=== PATIENT | male | born 1950 | race Caucasian/White ===

== ENCOUNTER 2023-10-05 06:00 | Inpatient (IN) | payer OTHER ==
[2023-10-04 15:10] VITALS: BMI 27.8
[2023-10-05] MEDS ORDERED: ceFAZolin SODIUM 1 GM VIAL IVPB ONE ×2 (07:41→09:45)
[2023-10-05] MEDS ORDERED: VANCOMYCIN 1 GM in D5W (PRE-DOCKED) 1,000 MG/250 ML (RESTRICTED TO ID ONLY IVPB ONE ×2 (07:42→09:45)
[2023-10-05] MEDS ORDERED: LIDOCAINE 1%/EPI 1:100000 (20 ML MULTI DOSE VIAL) IJ ONE ×2 (07:42→09:49)
[2023-10-05] MEDS ORDERED: THROMBIN (BOVINE) 5,000 UNIT VIAL TP ONE ×2 (09:02→10:15)
[2023-10-05] MEDS ORDERED: HYDROGEN PEROXIDE 473 ML PO ONE ×2 (09:03→10:36)
[2023-10-05] MEDS ORDERED: GENTAMICIN SO4 80 MG/2 ML VIAL IVPB ONE ×2 (09:03→10:36)
[2023-10-05] MEDS ORDERED: ACETAMINOPHEN 1000 MG/100 ML BAG IVPB ONE ×2 (11:24→11:42)
[2023-10-05] MEDS ORDERED: ONDANSETRON 4 MG/2 ML VIAL IVPUSH PRN ×2 (11:24→11:30)
[2023-10-05] MEDS ORDERED: PROMETHAZINE HCL 25 MG/1 ML VIAL IVPB PRN (11:24)
[2023-10-05] MEDS ORDERED: oxyCODONE HCL 5 MG TABLET PO PRN (11:30)
[2023-10-05] MEDS ORDERED: LACTATED RINGERS SOLUTION 1,000 ML IV SCH (11:30)
[2023-10-05] MEDS ORDERED: morphine SULFATE 4 MG/ML VIAL IVPUSH PRN (11:30)
[2023-10-05] MEDS ORDERED: diphenhydrAMINE HCL 25 MG CAPSULE (FP) PO PRN (11:30)
[2023-10-05] MEDS ORDERED: ACETAMINOPHEN INJECTION 100 ML IVPB ONE (11:35)
[2023-10-05] MEDS: SODIUM CHLORIDE 1,000 ML IV SCH (14:33)
[2023-10-05] MEDS: DOCUSATE SODIUM 100 MG CAPSULE (FP) PO SCH ×2 (14:34→22:05)
[2023-10-05] MEDS: oxyCODONE HCL 5 MG TABLET PO PRN ×2 (14:43→22:05)
[2023-10-05] MEDS: amLODIPine BESYLATE 10 MG TABLET (FP) PO SCH (17:38)
[2023-10-05] MEDS: LOSARTAN POTASSIUM 50 MG TABLET PO SCH (17:38)
[2023-10-05] MEDS: metFORMIN HCL 500 MG TABLET (FP) PO SCH (17:41)
[2023-10-05] MEDS: ACETAMINOPHEN 1000 MG/100 ML BAG IVPB SCH (17:46)
[2023-10-05] MEDS ORDERED: INSULIN (NOVOLOG) ASPART 100 UNITS/ML 10ML VIAL ONE ×2 (17:47→21:15)
[2023-10-05] MEDS: INSULIN SLIDING SCALE (NOVOLOG) 1 VIAL SQ SCH ×2 (17:50→22:12)
[2023-10-05] MEDS: CEFAZOLIN 1 GM in DEXTROSE 5%-WATER - 50 ML IVPB SCH (18:45)
[2023-10-05] MEDS ORDERED: ATORVASTATIN CA 10 MG TABLET (FP) PO SCH (22:00)
[2023-10-05] MEDS ORDERED: HEPARIN NA (PORCINE) 5,000 UNITS/ML 1ML VIAL SQ SCH (22:00)
[2023-10-05] MEDS ORDERED: DOXAZOSIN MESYLATE 1 MG TABLET PO SCH (22:00)
[2023-10-06] MEDS: CEFAZOLIN 1 GM in DEXTROSE 5%-WATER - 50 ML IVPB SCH ×3 (01:09→17:09)
[2023-10-06] MEDS: ACETAMINOPHEN 1000 MG/100 ML BAG IVPB SCH ×2 (01:30→09:19)
[2023-10-06] MEDS ORDERED: INSULIN (NOVOLOG) ASPART 100 UNITS/ML 10ML VIAL ONE (05:11)
[2023-10-06] MEDS: INSULIN SLIDING SCALE (NOVOLOG) 1 VIAL SQ SCH ×3 (06:26→17:09)
[2023-10-06] MEDS: metFORMIN HCL 500 MG TABLET (FP) PO SCH ×2 (06:26→17:09)
[2023-10-06] MEDS: DOCUSATE SODIUM 100 MG CAPSULE (FP) PO SCH ×2 (06:26→15:17)
[2023-10-06 08:54] LABS: HEMATOCRIT 42.7 % (35.4-49); MCH 29.7 pg (25.7-33.7); MCHC 32.8 g/dl (32.0-35.9); MEAN CELL VOLUME 90.7 fl (80-96); PLATELET COUNT 170 10^3/uL (134-434); RBC 4.71 M/mm3 (4.00-5.60); RDW 14.1 % (11.9-15.9); WHITE BLOOD COUNT 17.3 K/mm3 (4.0-10.0)
[2023-10-06 09:16] VITALS: RESP 18
[2023-10-06 09:16] LABS: POTASSIUM 4.1 mmol/L (3.5-5.1)
[2023-10-06] MEDS: LOSARTAN POTASSIUM 50 MG TABLET PO SCH (09:18)
[2023-10-06] MEDS: amLODIPine BESYLATE 10 MG TABLET (FP) PO SCH (09:18)
[2023-10-06 09:22] LABS: BLOOD UREA NITROGEN 16.4 mg/dL (7-18); CALCIUM 8.3 mg/dL (8.5-10.1)
[2023-10-06] MEDS: HEPARIN NA (PORCINE) 5,000 UNITS/ML 1ML VIAL SQ SCH ×2 (09:25→17:15)
[2023-10-06 09:26] LABS: CREATININE 0.9 mg/dL (0.55-1.3)
[2023-10-06] MEDS ORDERED: LOSARTAN POTASSIUM 50 MG TABLET PO SCH (10:00)
[2023-10-06] MEDS ORDERED: FERROUS SO4 325 MG TABLET (FP) PO SCH (10:00)
[2023-10-06] MEDS ORDERED: FOLIC ACID 1 MG TABLET (FP) PO SCH (10:00)
[2023-10-06] MEDS ORDERED: amLODIPine BESYLATE 10 MG TABLET (FP) PO SCH (10:00)
[2023-10-06 14:03] VITALS: BP 122/70; PULSE 63; TEMP 97.9
[2023-10-06] MEDS ORDERED: ACETAMINOPHEN 500 MG TABLET (FP) PO SCH (14:30)
[2023-10-06] MEDS: SODIUM CHLORIDE 1,000 ML IV SCH (15:17)
== END 2023-10-06 19:16 | disposition home or self-care (01) | DRG 473 ==
LOC: J2C 06:00 → J8W 14:18
PROVIDERS: ADMIT Neurological Surgery; ATTEND Nurse Practitioner Acute Care
PROC: 00NW0ZZ Release Cervical Spinal Cord, Open Approach (ICD-10-PCS; 2023-10-05)
PROC: 0RB30ZZ Excision of Cervical Vertebral Disc, Open Approach (ICD-10-PCS; 2023-10-05)
PROC: 4A1004G Monitoring of Central Nervous Electrical Activity, Intraoperative, Open Approach (ICD-10-PCS; 2023-10-05)
PROC: 0RG20A0 Fusion of 2 or more Cervical Vertebral Joints with Interbody Fusion Device, Anterior Approach, Anterior Column, Open Approach (ICD-10-PCS; principal; 2023-10-05 08:30)
DX: M47.812 Spondylosis without myelopathy or radiculopathy, cervical region (principal); M40.292 Other kyphosis, cervical region; I10 Essential (primary) hypertension; E11.9 Type 2 diabetes mellitus without complications; E78.5 Hyperlipidemia, unspecified; N40.0 Benign prostatic hyperplasia without lower urinary tract symptoms; M40.50 Lordosis, unspecified, site unspecified
CPT/HCPCS: 36415; 72125-TC; 76000-TC-FY; 80048; 82962; 83036; 85027; 86850; 86900; 86901; 94760; 97116-GP; 97161-GP; C1713; J1644